=== PATIENT | male | born 1990 | race African-American/Black ===

== ENCOUNTER 2024-11-29 11:41 | Emergency (ER) | payer MEDICAID ==
[~2024-11-29] VITALS: Ht 172.7 cm; Wt 77.0 kg
[2024-11-29 11:54] VITALS: O2SAT 99
[2024-11-29] MEDS: ONDANSETRON HCL 4MG/2ML INJ IV ONE (13:20)
[2024-11-29] MEDS: KETOROLAC 30MG/ML VIAL IV ONE (13:20)
[2024-11-29] MEDS: SODIUM CHLORIDE 0.9% (SEPSIS BOLUS) IV ONE (13:21)
[2024-11-29 13:33] LABS: BASOPHILS % 0.5 % (0.0-2.0); EOSINOPHILS % 0.2 % (0.0-5.0); HEMATOCRIT. 21.2 % (42.0-52.0); HEMOGLOBIN. 7.4 g/dL (14.0-18.0); LYMPHOCYTES % 10.2 % (20.0-50.0); MEAN CORPUSCULAR HEMOGLOBIN 29.8 pg (28.0-32.0); MEAN CORPUSCULAR VOLUME 85.1 fL (80.0-94.0); MEAN PLATELET VOLUME 8.5 fl (7.4-10.4); NEUTROPHILS % 82.1 % (40.0-76.0); PLATELET 237 x1000/uL (130-400); RED BLOOD CELL COUNT 2.49 mill/uL (4.7-6.1); RED CELL DISTRIBUTION WIDTH 14.5 % (11.6-14.6); WHITE BLOOD COUNT 11.3 x1000/uL (4.5-11.0)
[2024-11-29] MEDS: CEFTRIAXONE 1GM/50ML 50 ML IV SCH (13:35)
[2024-11-29 13:37] LABS: CHLORIDE 99 mEq/L (98-107); SODIUM 135 mEq/L (136-145)
[2024-11-29 13:38] LABS: CALCIUM 8.7 mg/dL (8.7-10.4); CARBON DIOXIDE 29 mEq/L (21-32)
[2024-11-29 13:41] LABS: PROTHROMBIN TIME 10.8 sec (9.6-11.0)
[2024-11-29 13:43] LABS: CREATININE 0.7 mg/dL (0.6-1.3); GLUCOSE 111 mg/dL (70-105); UREA NITROGEN BLOOD 6 mg/dL (9-23)
[2024-11-29 13:44] LABS: ETHANOL BLOOD < 10 mg/dL (<10)
[2024-11-29 13:45] LABS: ALANINE AMINOTRANSFERASE 36 IU/L (10-49); ALBUMIN 3.8 g/dL (3.2-4.8); ASPARTATE AMINOTRANSFERASE 75 IU/L (<34); BILIRUBIN DIRECT 0.3 mg/dL (<=3.0); BILIRUBIN TOTAL 0.8 mg/dL (0.1-1.0); PROTEIN TOTAL 6.3 g/dL (6.0-8.3)
[2024-11-29] MEDS: ACETAMINOPHEN 500MG TABLET PO SCH (15:52)
[2024-11-29] MEDS ORDERED: DOCU-138 MT (16:34)
[2024-11-29] MEDS ORDERED: FEO PR (16:34)
[2024-11-29 17:38] VITALS: BP 112/63; PULSE 75; RESP 18; TEMP 36.9; O2SAT 99
== END 2024-11-29 17:45 | disposition home or self-care (01) ==
LOC: ER 11:41 → EDBD 11:41 → ER 17:45
DX: A41.9 Sepsis, unspecified organism (principal); R65.20 Severe sepsis without septic shock; K56.41 Fecal impaction
CPT/HCPCS: 80076; 80048; 80320; 83605; 85025; 85610; 87040; 36415; 84145; 71045; 74176; 93005; 96374; 96375; 99291; J0696; J1885; J2405; J7030; Z7610 ×3; A4606; G0480